=== PATIENT | female | born 1935 | race Caucasian/White ===

== ENCOUNTER 2016-11-20 10:20 | Inpatient (IN) | payer MEDICARE, BC ==
[2016-11-13 11:23] VITALS: BMI 32.1
--- NOTE | 2016-11-19 12:31 | HP ---
DATE OF ADMISSION: 11/20/2016 Merary Walsh is a 81-year-old patient seen with symptomatic left knee osteoarthritis. After having treatment options discussed, patient elected to proceed with left total knee arthroplasty. Consent was obtained. Medical clearance was provided by Dr. Carson Santiago. Past medical history is hypertension, hyperlipidemia, gastroesophageal reflux disease, osteoarthritis. PAST SURGICAL HISTORY: Carpal tunnel release, left elbow surgery. DAILY MEDICATIONS: 1. Antivert. 2. Cozaar. 3. Omeprazole. 4. Zocor. 5. Xyzal. ALLERGIES: None. SOCIAL HISTORY: Patient denies tobacco use. Physical evaluation of the left knee: Range of motion is -4 to 110 degrees. There is tenderness along the medial joint line. Positive medial Agnes's. Crepitus along the medial and patellofemoral compartments with range of motion. Pain with patellofemoral compression. Ligaments are stable. Hip rotation is without pain. Distal neurovascular exam is intact. Radiographs of the left knee reveal severe medial and moderate patellofemoral compartment osteoarthritis. IMPRESSION: Left knee osteoarthritis. PLAN: Left total knee arthroplasty.
[~2016-11-20 10:20] MED LIST: ACETAMINOPHEN TAB 500 MG TAB PO ONE; HYDROmorphone 1 MG/ML 1 ML SYRINGE IVP PRN; LIDOCAINE 1% 20 ML VIAL (10MG/ML) FOR IV START INTRADERMA PRN; MELOXICAM 7.5 MG TAB PO ONE; MIDAZOLAM 2 MG/2 ML VIAL IV PRN; ONDANSETRON 4 MG/2 ML VIAL IVP ONE; TRANEXAMIC ACID 1,000 MG in SODIUM CHLORIDE 0.9% 100 ML IVPB ONE; ceFAZolin 2 GM in SODIUM CHLORIDE 0.9% 100 ML IVPB ONE; fentaNYL (PF) 50 MCG/ML 20 ML VIAL IVP PRN
[2016-11-20] MEDS: LACTATED RINGERS 1,000 ML IV SCH ×2 (11:27→22:00)
[2016-11-20] MEDS ORDERED: MIDAZOLAM 2 MG/2 ML VIAL IVP ONE (11:40)
[2016-11-20] MEDS ORDERED: fentaNYL (PF) 50 MCG/ML 2 ML AMP IV ONE (11:41)
[2016-11-20] MEDS ORDERED: ROPIVACAINE 1,100 MG, SODIUM CHLORIDE 0.9% 330 ML MISCELLANE PRN ×2 (13:16)
[2016-11-20] MEDS ORDERED: SODIUM CHLORIDE 0.9% 100 ML BAG ONE (13:18)
[2016-11-20] MEDS ORDERED: HYDROmorphone (PF) 1 MG/ML ONE (13:18)
[2016-11-20] MEDS ORDERED: TRANEXAMIC ACID 1,000 MG/10 ML VIAL ONE (13:18)
[2016-11-20] MEDS ORDERED: PROPOFOL 10 MG/ML 20 ML VIAL IV ONE (13:18)
[2016-11-20] MEDS ORDERED: ePHEDrine 50 MG/ML 1 ML AMP ONE (13:18)
[2016-11-20] MEDS ORDERED: MIDAZOLAM 2 MG/2 ML VIAL ONE (13:18)
--- NOTE | 2016-11-20 13:24 | P.ONQ ---
Anesthesiology Proc Note - PNB - Peripheral Nerve Block Performed Left Adductor Canal Infusion Time Out Performed: Yes Indication: Acute Post-Operative Pain, Analgesia Specifically requested for management of pain by : Walter Brito Sedation Type: Sedate with meaningful contact maintained Preparation: Sterile Prep Position: Supine Catheter Depth at Skin (cm): 6 Catheter: Indwelling Needle Types: On-Q Needle Size: 100mm (4") Needle Gauge: 20 Technique: Ultrasound Injectate: 0.5% Ropivacaine (see comment for volume) (25 cc) Narrative: After advancing the catheter off the needle, and detaching from the needle nonpulsatile blood appeared in the catheter. The catheter was then withdrawn approximately 3 mm, blood was not able to be aspirated, and the catheter was affixed to the skin and sterilely dressed in this position. If no blood is aspirated in the recovery room we will start a 0.2% ropivacaine infusion at 8 mL per hour. It is anticipated that this should provide good analgesia postoperatively for this patient. Blood Aspirated: Yes Pain Paresthesia on Injection Noted: No Resistance on Injection: Normal Events: Uneventful and Well Tolerated
[2016-11-20] MEDS: ROPIVACAINE 246.25 MG, EPINEPHrine 0.5 MG, KETOROLAC 30 MG, cloNIDine HCL/PF 80 MCG, WA... MISCELLANE ONE ×10 (13:53→14:49)
[2016-11-20] MEDS ORDERED: LACTATED RINGERS 1,000 ML IV ONE ×2 (13:55→14:30)
[2016-11-20] MEDS ORDERED: HYDROcodone/APAP 7.5-325MG 1 EACH TAB PO PRN ×2 (15:16)
[2016-11-20] MEDS ORDERED: HYDROmorphone 1 MG/ML 1 ML SYRINGE IVP PRN ×3 (15:16)
[2016-11-20] MEDS ORDERED: NALOXONE 0.4 MG/ML 1 ML VIAL IV PRN (15:16)
--- NOTE | 2016-11-20 15:16 | P.OP ---
Date of Procedure: 11/20/16 Preoperative Diagnosis: Left knee osteoarthritis Postoperative Diagnosis: Left knee osteoarthritis Procedure(s) Performed: Left total knee arthroplasty Implants: 1. Humberto persona size 6 standard cemented cruciate retaining femoral component 2. Humberto persona size D cemented tibial tray 3. Humberto persona 10 millimeter polyethylene tibial insert 4. Humberto persona 35 mm all polyethylene cemented patella Anesthesia: regional (Adductor canal block), local, spinal Surgeon: Walter Brito Family Engagement Specialist #1: Ja Goncalves Estimated Blood Loss (ml): 200 Pathology: other (Bone) Condition: stable Disposition: PACU Indications for Procedure: 81-year-old patient seen with progressive symptomatic left knee osteoarthritis. After having treatment options discussed, she elected to proceed with left total knee arthroplasty. Operative Findings: See description of procedure Description of Procedure: Patient was taken to the operative suite after having undergone an adductor canal block by department of anesthesia. Patient underwent a spinal anesthetic by the department of anesthesia. Patient was given preoperative IV intake antibiotics and TXA. A well-padded tourniquet was placed about the left lower extremity. The lower extremity was then prepped and draped in the normal sterile orthopedic fashion. A standard anterior incision was made sharply through skin. Dissection was taken down through the subcutaneous soft tissues down to the extensor mechanism. A medial arthrotomy was performed, patella was everted and knee was flexed. There was advanced osteoarthritis noted. A proximal tibial cutting guide was positioned. Proximal tibial cut was made. A distal intramedullary femoral cutting guide was positioned, distal femoral cut made. We placed the appropriate sizing guide and selected the appropriate size. A distal 4-in-1 femoral cutting block was positioned, distal femoral cuts were made. We now placed a trial femoral component into position, along with an appropriate size tibial tray and insert. We now took the knee through range of motion and had full extension good flexion and good overall soft tissue balance noted. The patella was everted and a flush cut made with patellar quad tendon. We templated the patella, appropriate drill holes were made. An appropriate trial patella was positioned, knee was taken through full range of motion with the patella tracking very nicely. The trial patella was removed. Drill holes were made through the femoral component. All trial components were removed after marking off the appropriate rotation of the tibia. Retractors were now positioned along the proximal tibia. An appropriate keel punch was made with the appropriate size tibial guide. At this point appropriate size implants were chosen and opened. The tourniquet was insufflated to 350. The joint was irrigated copiously with pulse lavage mechanical irrigation. The posterior capsule and deep soft tissues were infiltrated with local analgesic. We mixed antibiotic methylmethacrylate. Once the methyl methacrylate was ready, the tibial component was cemented into place removing any excess methylmethacrylate. The femoral component was cemented into place removing the removing any excess methylmethacrylate. We then inserted the appropriate size polyethylene tibial insert. We made sure that it was locked into position. We took the knee into full extension, and then back in a flexion making sure we had removed any excess methylmethacrylate. The patellar component was then cemented down and secured with clamp. Excess methylmethacrylate removed. We kept the knee in full extension, patellar clamp in position until methylmethacrylate had hardened. Once it had hardened the patellar clamp was removed. The knee was taken through full range of motion. The patella tracked nicely. There was good soft tissue balancing. The tourniquet was now released. Additional hemostasis was achieved via electrocautery. A second gram of TXA was given. The wound was irrigated with pulse lavage mechanical irrigation. The extensor mechanism was repaired with Vicryl. We checked the repair with range of motion and it was stable. The subcutaneous soft tissues were repaired with Vicryl in layers. The skin was approximated with pernio/Dermabond. Sterile dressings were applied followed by loose web roll and Binh bandage. The patient was transferred to a bed, and taken to recovery in stable and satisfactory condition. Ja SANTIAGO assisted with the procedure.
[2016-11-20] MEDS ORDERED: SODIUM CHLORIDE 0.9% 1,000 ML IV SCH (15:30)
[2016-11-20] MEDS ORDERED: ROPIVACAINE 5 MG/ML 30 ML VIAL MISCELLANE ONE (15:46)
--- NOTE | 2016-11-20 15:54 | XR ---
Limited left knee HISTORY: Postop alignment 2 views of the left knee No comparisons Patient is status post left knee arthroplasty. Lucency present within the soft tissues. Alignment is anatomic. No evident dislocation. Lucency in the medullary canal of the distal femur thought likely t o be postoperative finding. IMPRESSION: Orthopedic follow-up.
[2016-11-20] MEDS ORDERED: MECLIZINE 25 MG TAB PO PRN (17:44)
[2016-11-20] MEDS: traMADol 50 MG TAB PO SCH ×2 (18:06→21:11)
[2016-11-20] MEDS: ATORVASTATIN 20 MG TAB PO SCH (21:07)
[2016-11-20] MEDS: SENNOSIDES-DOCUSATE SODIUM 1 EACH TAB PO SCH (21:09)
[2016-11-21] MEDS: ceFAZolin 2 GM in SODIUM CHLORIDE 0.9% 100 ML IVPB SCH ×2 (00:24→07:06)
[2016-11-21 07:44] LABS: Basophils % (A) 0 %; CH 31.8; CHCM 34.1; Eosinophils % (A) 0 %; HCT 33.2 % (34.0-46.0); HDW 2.51; HGB 11.1 gm/dL (11.4-16.0); Luc # (Auto) 0.08; Luc % (Auto) 1; Lymphocytes # (A) 1.1 k/uL (1.0-4.8); Lymphocytes % (A) 11 %; MCH 31.2 pg (25.0-35.0); MCHC 33.3 g/dL (31.0-37.0); MCV 93.6 fL (80.0-100.0); Monocytes # (A) 0.7 k/uL (0-1.0); Monocytes % (A) 6 %; Neutrophils # (A) 8.5 k/uL (1.3-7.7); Neutrophils % (A) 82 %; RBC 3.55 m/uL (3.80-5.40); RDW 12.3 % (11.5-15.5); WBC 10.4 k/uL (3.8-10.6); WBC (Perox) 11.31
[2016-11-21] MEDS: ENOXAPARIN 30 MG/0.3 ML SYRINGE SQ SCH ×2 (08:38→20:02)
[2016-11-21] MEDS: traMADol 50 MG TAB PO SCH ×2 (08:38→14:42)
[2016-11-21] MEDS: FAMOTIDINE 20 MG TAB PO SCH (08:38)
[2016-11-21] MEDS: PANTOPRAZOLE 40 MG TABLET PO SCH (08:39)
[2016-11-21] MEDS: CALCIUM CARB-VIT D 500MG-200UN 1 EACH TAB PO SCH (08:39)
[2016-11-21] MEDS: MELOXICAM 7.5 MG TAB PO SCH (08:39)
[2016-11-21] MEDS: CALCIUM CARBONATE 500 MG CHEWABLE PO SCH (08:39)
[2016-11-21] MEDS: MULTIVITAMINS, THERA 1 EACH TAB PO SCH (08:39)
[2016-11-21] MEDS: LACTOBACILLUS ACIDOPH & BULGAR 1 EACH PACKET PO SCH ×2 (08:40→08:46)
[2016-11-21] MEDS: LOSARTAN 50 MG TAB PO SCH (08:40)
[2016-11-21] MEDS: FLUTICASONE 50MCG/SPRAY NASAL 16GM EA NOSTRIL SCH (08:46)
[2016-11-21] MEDS: ONDANSETRON 4 MG/2 ML VIAL IVP PRN (09:47)
--- NOTE | 2016-11-21 10:13 | P.PN ---
Progress Note - Text 0735. Anesthesia POD1. Patient is status post left TKR under spinal anesthesia with a left adductor canal catheter placed for postoperative pain relief. The infusion is 0.2% ropivacaine at 8 mL per hour. Visual analog score is 2, 3 at rest and with ambulation respectively. Catheter site is clean and dry and the dressing is intact.
--- NOTE | 2016-11-21 13:45 | P.CONS ---
History of Present Illness - Reason for Consult Consult date: 11/21/16 Requesting physician: Walter Brito - Chief Complaint Left knee arthroplasty - History of Present Illness This is a pleasant 81-year-old lady patient of Dr. Berkowitz. She has underlying history of hyperlipidemia hypertension GERD was her arthritispostoperative nausea and vomiting admitted to the surgical floor after of knee left knee arthroplasty was performedon 11/20/[address] Brito. Patient denies any chest discomfort shortness of breath or palpitations. She has difficulties mainly with postoperative nausea without any vomiting. Patient denies any history of pancreas problems in the past no dysphasia patient denies any gallbladder pathology prior to admission.is receiving Lovenox for DVT prophylaxis. Expectation for home discharge would be with family memberswith home therapies. Review of Systems Constitutional: Reports as per HPI, Denies anorexia, Denies chills, Denies chronic headaches, Denies chronic pain, Denies daytime sleepiness, Denies fatigue, Denies fever, Denies lethargy, Denies malaise, Denies night sweats, Denies poor appetite, Denies sweats, Denies weakness, Denies weight gain, Denies weight loss Ears, nose, mouth and throat: Reports as per HPI, Denies ant. neck pain, Denies bleeding gums, Denies dental pain, Denies dysphagia, Denies epistaxis, Denies headache, Denies hoarseness, Denies mouth pain, Denies nasal congestion, Denies nasal discharge, Denies neck fullness/pressure, Denies neck lump, Denies nose pain, Denies odynophagia, Denies post-nasal drip, Denies sinus pain, Denies sinus pressure, Denies swelling in mouth, Denies swelling in throat, Denies sore throat, Denies vertigo, Denies voice changes Cardiovascular: Reports as per HPI, Denies chest pain, Denies claudication, Denies decreased exercise tolerance, Denies dyspnea on exertion, Denies edema, Denies high blood pressure, Denies irregular heart beat, Denies leg edema, Denies lightheadedness, Denies orthopnea, Denies palpitations, Denies paroxysmal nocturnal dyspnea, Denies phlebitis, Denies rapid heart beat, Denies shortness of breath, Denies syncope Respiratory: Reports as per HPI, Denies congestion, Denies cough, Denies cough with sputum, Denies dyspnea, Denies excessive sputum, Denies hemoptysis, Denies home oxygen, Denies pain, Denies pain on inspiration, Denies pleurisy, Denies respiratory infections, Denies sleep apnea, Denies snoring, Denies wheezing Gastrointestinal: Reports as per HPI, Reports nausea, Denies abdominal pain, Denies belching, Denies bloating, Denies BRBPR, Denies change in bowel habits, Denies coffee ground emesis, Denies constipation, Denies diarrhea, Denies dyspepsia, Denies early satiety, Denies excessive gas, Denies heartburn, Denies hematemesis, Denies hematochezia, Denies indigestion, Denies jaundice, Denies lactose intolerance, Denies loss of appetite, Denies melena, Denies vomiting Genitourinary: Reports as per HPI, Denies abnormal vaginal bleeding, Denies decreased libido, Denies difficulty conceiving, Denies difficulty voiding, Denies dysmenorrhea, Denies dyspareunia, Denies dysuria, Denies flank pain, Denies genital sores, Denies hematuria, Denies hot flashes, Denies incomplete emptying, Denies kidney stones, Denies menorrhagia, Denies mixed incontinence, Denies nocturia, Denies pelvic pain, Denies post void dribbling, Denies , Denies prolapse symptoms, Denies stress incontinence, Denies urge incontinence , Denies urgency, Denies urinary frequency, Denies vaginal discharge, Denies vaginal dryness, Denies vaginal itching, Denies vaginal odor Menstruation: Reports as per HPI, Reports postmenopausal Musculoskeletal: Reports as per HPI, Denies arm numbness/tingling, Denies atrophy, Denies fractures, Denies frequent falls, Denies gait dysfunction, Denies hot joints, Denies leg numbness/tingling, Denies limitation of motion, Denies loss of height, Denies low back pain, Denies morning stiffness, Denies muscle cramps, Denies muscle weakness, Denies myalgias, Denies neck pain, Denies neck stiffness, Denies prior amputations, Denies redness of joints, Denies shooting arm pain, Denies shooting leg pain Integumentary: Reports as per HPI Neurological: Reports as per HPI, Reports gait dysfunction, Denies aphasia, Denies ataxia, Denies balance difficulties, Denies burning pain, Denies change in mentation, Denies change in smell/taste, Denies change in speech, Denies confusion, Denies convulsions, Denies double vision, Denies head injury, Denies headaches, Denies hearing difficulties, Denies lack of coordination, Denies loss of vision, Denies memory loss, Denies migraines, Denies motor disturbance, Denies numbness, Denies paralysis, Denies paresthesias, Denies seizures, Denies sensory deficit, Denies spasticity, Denies syncope, Denies tic, Denies tingling , Denies transient paralysis, Denies tremors, Denies vertigo, Denies weakness, Denies visual changes Psychiatric: Reports as per HPI, Denies anhedonia, Denies anxiety, Denies anxiety attacks, Denies change in appetite, Denies change in libido, Denies change in sleep habits, Denies confusion, Denies depression, Denies difficulty concentrating, Denies disorientation, Denies hallucinations, Denies hopelessness , Denies hypersomnia, Denies insomnia, Denies irritability, Denies memory loss, Denies mood swings, Denies paranoia, Denies sadness/tearfulness, Denies sleep disturbances, Denies suicidal ideation Endocrine: Reports as per HPI, Denies cold intolerance, Denies deepening of the voice, Denies excessive sweating, Denies excessive thirst, Denies fatigue, Denies flushing, Denies heat intolerance, Denies high blood sugars, Denies increase in ring/shoe/hat size, Denies low blood sugars, Denies nocturia, Denies palpitations, Denies polydipsia, Denies polyphagia, Denies polyuria, Denies proptosis, Denies recent glucocorticoid use, Denies thyroid mass, Denies weight change Past Medical History Past Medical History: No Reported History, GERD/Reflux, Hyperlipidemia, Hypertension, Osteoarthritis (OA) History of Any Multi-Drug Resistant Organisms: None Reported Past Surgical History: Heart Catheterization Additional Past Surgical History / Comment(s): HEMORRHOIDECTOMY, LEFT AND RIGHT GREAT TOE- INGROWN TOENAIL. LEFT ELBOW, CARPAL TUNNEL RELEASE-BILATERAL, COLONOSCOPY Past Anesthesia/Blood Transfusion Reactions: Postoperative Nausea & Vomiting ( PONV) Past Psychological History: No Psychological Hx Reported Smoking Status: Never smoker Past Alcohol Use History: Rare Past Drug Use History: None Reported - Past Family History Mother Family Medical History: No Reported History, Coronary Artery Disease (CAD) Father Family Medical History: Coronary Artery Disease (CAD) Brother(s) Family Medical History: Coronary Artery Disease (CAD) Sister(s) Family Medical History: No Reported History Son(s) Family Medical History: Hypertension Medications and Allergies Home Medications Medication Instructions Recorded Confirmed Type Acetaminophen [Tylenol Arthritis] 650 mg PO Q6H PRN 11/13/16 11/20/16 History Aspirin [Adult Low Dose Aspirin EC] 81 mg PO DAILY 11/13/16 11/20/16 History Ca Carbonate/Vitamin D3/Vit K 1 tab PO DAILY 11/13/16 11/20/16 History [Citracal Soft Chew] Calcium Carbonate/Vitamin D3 1 tab PO DAILY 11/13/16 11/20/16 History [Calcium 600-Vit D3 200 Tablet] Fluticasone Nasal [place] [Flonase 2 spr EA NOSTRIL DAILY 11/13/16 11/20/16 History Nasal [place]] Glucosamine HCl/Chondr Rich A Na 1 tab PO DAILY 11/13/16 11/20/16 History [Osteo Bi-Flex Caplet] Ibuprofen [Advil] 200 - 400 mg PO Q4H PRN 11/13/16 11/20/16 History L.acidoph,Paracasei, B.lactis 1 cap PO DAILY 11/13/16 11/20/16 History [Probiotic] Levocetirizine Dihydrochloride 5 mg PO AC-SUPPER 11/13/16 11/20/16 History [Xyzal] Losartan [Cozaar] 50 mg PO DAILY 11/13/16 11/20/16 History Meclizine [Antivert] 25 mg PO BID PRN 11/13/16 11/20/16 History Multivitamins, Thera [Multivitamin] 1 tab PO DAILY 11/13/16 11/20/16 History Omeprazole 20 mg PO DAILY 11/13/16 11/20/16 History Simvastatin [Zocor] 40 mg PO DAILY@1800 11/13/16 11/20/16 History traMADol HCL [Ultram] 50 mg PO Q6HR PRN 11/13/16 11/20/16 History Allergies Allergy/AdvReac Type Severity Reaction Status Date / Time adhesive tape Allergy Rash/Hives Verified 11/20/16 12:23 Sulfa (Sulfonamide Allergy Rash/Hives Verified 11/20/16 12:23 Antibiotics) Physical Exam Vitals: Vital Signs Temp Pulse Resp BP BP Pulse Ox 11/21/16 07:00 98.3 F 80 16 104/55 91 L 11/21/16 01:10 97.9 F 70 16 116/56 93 L 11/20/16 19:45 18 11/20/16 19:41 96.7 F L 63 18 138/66 98 11/20/16 18:00 67 127/67 11/20/16 17:45 68 122/67 11/20/16 17:30 59 L 120/61 11/20/16 17:15 62 118/60 11/20/16 17:00 64 124/64 11/20/16 16:45 61 127/74 11/20/16 16:00 69 18 122/58 95 11/20/16 15:47 69 18 110/54 95 11/20/16 15:29 96.3 F L 72 18 120/87 92 L 11/20/16 11:05 96.9 F L 78 18 166/72 97 Intake and Output 11/20/16 11/21/16 11/21/16 22:59 06:59 14:59 Intake Total 400 400 Output Total 300 400 150 Balance 100 0 -150 Intake: IV 200 400 Sodium Chloride 0.9% 1, 200 400 000 ml @ 50 mls/hr IV . Q20H COUNTS INCLUDE 234 BEDS AT THE [facility] Rx#:[id number] Oral 200 Output: Urine 100 400 150 Uretheral ([place]) 400 100 Estimated Blood Loss 200 Other: Voiding Method Indwelling Catheter Weight 77.111 kg - Constitutional General appearance: cooperative, no acute distress - EENT Eyes: anicteric sclerae, PERRLA, normal appearance ENT: hearing grossly normal, NA/AT, normal oropharynx - Neck Neck: no lymphadenopathy, normal ROM, no other, no rigidity, no stridor, no thyromegaly - Respiratory Respiratory: bilateral: CTA, negative: diminished, dullness, rales, rhonchi, wheezing - Cardiovascular Rhythm: regular Heart sounds: normal: S1, S2 Abnormal Heart Sounds: no systolic murmur, no diastolic murmur, no rub, no S3 Gallop, no S4 Gallop, no click, no other - Gastrointestinal General gastrointestinal: normal bowel sounds, soft - Integumentary Integumentary: normal, normal turgor - Neurologic Neurologic: CNII-XII intact - Musculoskeletal Musculoskeletal: strength equal bilaterally - Psychiatric Psychiatric: A&O x's 3, appropriate affect, intact judgment & insight Results CBC & Chem 7: 11/21/16 07:15 Labs: Abnormal Lab Results - Last 24 Hours (Table) 11/21/16 Range/Units 07:15 RBC 3.55 L (3.80-5.40) m/uL Hgb 11.1 L (11.4-16.0) gm/dL Hct 33.2 L (34.0-46.0) % Neutrophils # 8.5 H (1.3-7.7) k/uL Laboratory Results WBC 10.4 k/uL (3.8-10.6) 11/21/16 07:15 RBC 3.55 m/uL (3.80-5.40) L 11/21/16 07:15 Hgb 11.1 gm/dL (11.4-16.0) L 11/21/16 07:15 Hct 33.2 % (34.0-46.0) L 11/21/16 07:15 MCV 93.6 fL (80.0-100.0) 11/21/16 07:15 MCH 31.2 pg (25.0-35.0) 11/21/16 07:15 MCHC 33.3 g/dL (31.0-37.0) 11/21/16 07:15 RDW 12.3 % (11.5-15.5) 11/21/16 07:15 Plt Count 200 k/uL (150-450) 11/21/16 07:15 Neutrophils % 82 % 11/21/16 07:15 Lymphocytes % 11 % 11/21/16 07:15 Monocytes % 6 % 11/21/16 07:15 Eosinophils % 0 % 11/21/16 07:15 Basophils % 0 % 11/21/16 07:15 Neutrophils # 8.5 k/uL (1.3-7.7) H 11/21/16 07:15 Lymphocytes # 1.1 k/uL (1.0-4.8) 11/21/16 07:15 Monocytes # 0.7 k/uL (0-1.0) 11/21/16 07:15 Eosinophils # 0.0 k/uL (0-0.7) 11/21/16 07:15 Basophils # 0.0 k/uL (0-0.2) 11/21/16 07:15 Assessment and Plan Plan: 1. 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 Plan for home discharge with therapies with family members 2. Postoperative nausea and vomiting, we'll minimize symptoms with Zofran expect resolution in the next one day or so. 3. Hypertension stable on losartan 50 mg daily, resumed with parameters 4. GERD on maintenance PPI at home 5. Hyperlipidemia on Lipitor 20 no changes were made 6. BMI 32 SL changes again were recommended to diminish calories and improve physical activity 7.Postmenopausal disorder bone and density, patient calcium with vitamin D 8. Mild blood loss anemia, DVT prophylaxis using Lovenox GI prophylaxis using maintenance PPIs, bowel softener program Discharge planning home with therapies and family members Thank you Dr. Brito in allowing us to participate for the care of your patient. We'll going to follow her with you during this current hospital stay. Please do not hesitate to call for any concerns or have of her care Time with Patient: Greater than 30
[2016-11-21] MEDS: ACETAMINOPHEN TAB 325 MG TAB PO PRN (16:57)
[2016-11-21] MEDS: ATORVASTATIN 20 MG TAB PO SCH (16:58)
[2016-11-21] MEDS ORDERED: LORATADINE 10 MG TAB PO SCH (17:30)
--- NOTE | 2016-11-21 17:40 | P.PN ---
Subjective Principal diagnosis: Status post left total knee arthroplasty Patient is seen today resting in her hospital bed, she has family present at bedside. Patient has had some nausea today. She is ambulating minimally at this time. Urinary cath was discontinued. Patient denies any chest pain, shortness of breath, lightheadedness, fever chills. Objective - Vital Signs Vital signs: Vital Signs Temp 97.5 F L 11/21/16 14:11 Pulse 75 11/21/16 14:11 Resp 17 11/21/16 14:11 BP 133/69 11/21/16 14:11 Pulse Ox 95 11/21/16 14:11 Intake & Output 11/20/16 11/21/16 11/21/16 18:59 06:59 18:59 Intake Total 2600 600 Output Total 300 400 450 Balance 2300 200 -450 Weight 77.111 kg Intake: IV 2400 600 Sodium Chloride 0.9% 1, 600 000 ml @ 50 mls/hr IV . Q20H [facility] Rx#:[id number] Oral 200 Output: Urine 100 400 450 Uretheral ([place]) 400 100 Estimated Blood Loss 200 Other: Voiding Method Indwelling Catheter Indwelling Catheter - Exam Left lower extremity: Incision is clean, dry and intact. Calf soft, no tenderness with palpation. Sensory exam light touch throughout the extremity is intact. Cap refills less than 3 seconds. Plantar flexion, dorsiflexion, EHL, FHL are intact - Labs CBC & Chem 7: 11/21/16 07:15 Labs: Abnormal Lab Results - Last 24 Hours (Table) 11/21/16 Range/Units 07:15 RBC 3.55 L (3.80-5.40) m/uL Hgb 11.1 L (11.4-16.0) gm/dL Hct 33.2 L (34.0-46.0) % Neutrophils # 8.5 H (1.3-7.7) k/uL Assessment and Plan Plan: Assessment: 1. Postop day #1 status post left total knee arthroplasty Plan: 1. Pain control, hold off on narcotic medication at this time, utilize Tylenol 2. Continue weightbearing with therapy and use of CPM 3. Daily dressing changes/ice and elevate 4. Encourage incentive spirometer 5. GI and DVT prophylaxis, continue use of Lovenox 6. Medical recommendations 7. Discharge planning: Patient will likely be discharged home tomorrow Time with Patient: Less than 30
--- NOTE | 2016-11-21 17:42 | P.DS ---
Providers Date of admission: 11/20/16 10:45 Expected date of discharge: 11/22/16 Attending physician: Walter Brito Consults: 11/20/16 15:16 Consult Physician Routine Consulting Provider: David Berkowitz Consult Reason/Comments: Medical management Do you want consulting provider notified?: Yes Primary care physician: [facility] Course: Date of admission: 11/20/2016 Date of discharge: 11/21/2016 Admission diagnosis: Status post left total knee arthroplasty Discharge diagnosis: Same Attending physician: Dr. Brito Surgical procedures: Left total knee arthroplasty Brief history: Patient is a 81-year-old female with a history of progressive primary left knee osteoarthritis. At this point patient has failed conservative treatment measures and has opted to proceed with a elective left total knee arthroplasty. Hospital course: Details of patient's surgery can be found in operative report. Patient tolerated the procedure well and was subsequently transported to orthopedic floor. Patient's orthopeidc and medical care was provided daily. Patient had daily laboratory tests performed for evaluation of overall blood counts. Patient had daily physical therapy to include strengthening range of motion as well as education with walker ambulation. Patient had daily CPM usage as part of their physical therapy program. Patient was treated with Lovenox for their postoperative DVT prophylaxis during their inpatient stay. Patient was noted to have a relatively uneventful postoperative course. Patient reported satisfactory pain control with oral pain medications by postoperative day 0. Patient showed satisfactory progress with physical therapy. Patient moved steadily through the program and had no difficulty meeting the goals by postoperative day 2. Given patient's otherwise satisfactory course and having met physical therapy goals, plan is to discharge patient home on postoperative day 2. Discharge condition/disposition: Patient will be discharged home in stable condition. Discharge medications: Instructions are given on resumption of patient's normal daily medications per primary care recommendation, in addition patient will be prescribed aspirin 325 mg, Colace 100 mg. Discharge instructions: 1. Wound care and infection precautions, keep incision dry and covered while showering, no lotions, creams, moisturizers. No soaking, tubs, pools, hottubs. Do not scrub over the incision. 2. Weight-bear as tolerated with walker / cane until follow-up. 3. Ice and elevate when necessary. Do not exceed 20 minutes per hour with ice pack. 4. Utilize compression sleeve until seen at first follow up appointment. 5. Visiting nursing care. 6. Home physical therapy including home CPM. 7. Pain meds and anticoagulants per prescription. 8. Pain medication has potential to cause constipation. Increase oral fluid and fiber intake. Contact primary care provider if you have not had a bowel movement within 48 hours after discharge 9. No anti-inflammatory medication until discussed at first post operative visit, this including Motrin, Aleve, Mobic, Diclofenac. 10. Follow up in office at 2 weeks postop with Phil Goncalves PA-C 11. Follow up with your primary care doctor 7-10 days after discharge. 12. Contact [facility] with any questions, . Procedures: Left total knee arthroplasty Patient Condition at Discharge: Good Plan - Discharge Summary New Discharge Prescriptions: Aspirin 325 mg PO BID #60 tab Docusate [Colace] 100 mg PO DAILY #20 capsule Discharge Medication List Acetaminophen [Tylenol Arthritis] 650 mg PO Q6H PRN 11/13/16 [History] Ca Carbonate/Vitamin D3/Vit K [Citracal Soft Chew] 1 tab PO DAILY 11/13/16 [ History] Calcium Carbonate/Vitamin D3 [Calcium 600-Vit D3 200 Tablet] 1 tab PO DAILY 07/22 [History] Fluticasone Nasal Christopher [Flonase Nasal Christopher] 2 spr EA NOSTRIL DAILY 11/13/16 [ History] Glucosamine HCl/Chondr Rich A Na [Osteo Bi-Flex Caplet] 1 tab PO DAILY 11/13/16 [ History] L.acidoph,Paracasei, B.lactis [Probiotic] 1 cap PO DAILY 11/13/16 [History] Levocetirizine Dihydrochloride [Xyzal] 5 mg PO AC-SUPPER 11/13/16 [History] Losartan [Cozaar] 50 mg PO DAILY 11/13/16 [History] Meclizine [Antivert] 25 mg PO BID PRN 11/13/16 [History] Multivitamins, Thera [Multivitamin] 1 tab PO DAILY 11/13/16 [History] Omeprazole 20 mg PO DAILY 11/13/16 [History] Simvastatin [Zocor] 40 mg PO DAILY@1800 11/13/16 [History] traMADol HCL [Ultram] 50 mg PO Q6HR PRN 11/13/16 [History] Aspirin 325 mg PO BID #60 tab 11/22/16 [Rx] Docusate [Colace] 100 mg PO DAILY #20 capsule 11/22/16 [Rx] Follow up Appointment(s)/Referral(s): Marcelo [facility], [NON-STAFF] - Ja Goncalves, ZAINAB [PHYSICIAN POLITICAL CONSULTANT] - 2 Weeks Activity/Diet/Wound Care/Special Instructions: Walker - has at home CPM - has at home Orthopedic Discharge Instructions: 1. Wound care and infection precautions, keep incision dry and covered while showering, no lotions, creams, moisturizers. No soaking, pools, hot tubs. Do not scrub over incision. 2. Weight-bear as tolerated with walker / cane until follow-up. 3. Ice and elevate when necessary. Do not exceed 20 minutes per hour with ice pack. 4. Utilize compression sleeve until seen at first follow up appointment. 5. Visiting nursing care. 6. Home physical therapy including home CPM. 7. Pain meds and anticoagulants per prescription. 8. Pain medication has potential to cause constipation. Increase oral fluid and fiber intake. Contact primary care provider if you have not had a bowel movement within 48 hours after discharge. 9. No anti-inflammatory medication until discussed at first post operative visit, this including Motrin, Aleve, Mobic, Diclofenac. 10. Follow up in office at 2 weeks postop with Phil Goncalves PA-C 11. Follow up with your primary care doctor 7-10 days after discharge. 12. Contact [facility] with any questions, . Discharge Disposition: HOME WITH HOME HEALTH SERVICES
[2016-11-21 20:02] VITALS: RESP 16
[2016-11-21] MEDS: SENNOSIDES-DOCUSATE SODIUM 1 EACH TAB PO SCH (20:02)
[2016-11-22] MEDS: ACETAMINOPHEN TAB 325 MG TAB PO PRN ×3 (00:07→09:54)
[2016-11-22] MEDS: hydrOXYzine PAMOATE 25 MG CAP PO PRN ×3 (00:08→09:56)
[2016-11-22] MEDS: ONDANSETRON 4 MG/2 ML VIAL IVP PRN (01:23)
[2016-11-22 07:20] VITALS: BP 159/89; PULSE 75; TEMP 97.9
[2016-11-22 07:33] LABS: Basophils # (A) 0.2 k/uL (0-0.2); Basophils % (A) 2 %; CH 31.9; CHCM 34.9; Eosinophils % (A) 0 %; HCT 30.6 % (34.0-46.0); HDW 2.53; HGB 10.5 gm/dL (11.4-16.0); Luc # (Auto) 0.04; Luc % (Auto) 1; Lymphocytes # (A) 0.8 k/uL (1.0-4.8); Lymphocytes % (A) 10 %; MCH 31.5 pg (25.0-35.0); MCHC 34.4 g/dL (31.0-37.0); MCV 91.7 fL (80.0-100.0); Mean Platelet Volume 7.9; Monocytes # (A) 0.7 k/uL (0-1.0); Monocytes % (A) 8 %; Neutrophils # (A) 6.4 k/uL (1.3-7.7); Neutrophils % (A) 79 %; RBC 3.34 m/uL (3.80-5.40); RDW 12.3 % (11.5-15.5); WBC 8.2 k/uL (3.8-10.6); WBC (Perox) 8.51
[2016-11-22 07:54] LABS: Anion Gap 7 mmol/L; Blood Urea Nitrogen 17 mg/dL (7-17); Calcium 8.6 mg/dL (8.4-10.2); Carbon Dioxide 26 mmol/L (22-30); Chloride 100 mmol/L (98-107); Glucose 115 mg/dL (74-99); Non-African American GFR(MDRD) >60 (>60 ml/min/1.73 sqM); Potassium 4.5 mmol/L (3.5-5.1); Sodium 133 mmol/L (137-145)
[2016-11-22] MEDS: PANTOPRAZOLE 40 MG TABLET PO SCH (08:43)
[2016-11-22] MEDS: ENOXAPARIN 30 MG/0.3 ML SYRINGE SQ SCH (08:43)
[2016-11-22] MEDS: MELOXICAM 7.5 MG TAB PO SCH (08:43)
[2016-11-22] MEDS: LOSARTAN 50 MG TAB PO SCH (08:44)
[2016-11-22] MEDS: FAMOTIDINE 20 MG TAB PO SCH (08:44)
[2016-11-22] MEDS: CALCIUM CARB-VIT D 500MG-200UN 1 EACH TAB PO SCH (08:44)
[2016-11-22] MEDS: LACTOBACILLUS ACIDOPH & BULGAR 1 EACH PACKET PO SCH (08:44)
[2016-11-22] MEDS: FLUTICASONE 50MCG/SPRAY NASAL 16GM EA NOSTRIL SCH ×2 (08:44→08:46)
--- NOTE | 2016-11-22 10:54 | P.PN ---
Subjective Principal diagnosis: Status post left total knee arthroplasty Patient is seen today resting in her hospital bed, she has family present at bedside. Patient's nausea is improved significantly. Patient denies any chest pain, shortness of breath, lightheadedness, fever chills. Objective - Vital Signs Vital signs: Vital Signs Temp 97.9 F 11/22/16 07:19 Pulse 75 11/22/16 07:19 Resp 16 11/22/16 07:19 BP 159/89 11/22/16 07:19 Pulse Ox 95 11/22/16 07:19 Intake & Output 11/21/16 11/22/16 11/22/16 18:59 06:59 18:59 Intake Total 360 480 Output Total 450 200 Balance -90 -200 480 Intake: Oral 360 480 Output: Urine 450 200 Uretheral ([place]) 100 Other: Voiding Method Toilet # Voids 1 - Exam Left lower extremity: Incision is clean, dry and intact. Calf soft, no tenderness with palpation. Sensory exam light touch throughout the extremity is intact. Cap refills less than 3 seconds. Plantar flexion, dorsiflexion, EHL, FHL are intact - Labs CBC & Chem 7: 11/22/16 06:57 11/22/16 06:57 Labs: Abnormal Lab Results - Last 24 Hours (Table) 11/22/16 11/22/16 Range/Units 06:57 06:57 RBC 3.34 L (3.80-5.40) m/uL Hgb 10.5 L (11.4-16.0) gm/dL Hct 30.6 L (34.0-46.0) % Lymphocytes # 0.8 L (1.0-4.8) k/uL Sodium 133 L (137-145) mmol/L Glucose 115 H (74-99) mg/dL Assessment and Plan Plan: Assessment: 1. Postop day #2 status post left total knee arthroplasty Plan: 1. Pain control, we'll discharge home on Tylenol, she has tramadol at home if need be 2. Continue weightbearing with therapy and use of CPM 3. Daily dressing changes/ice and elevate 4. Encourage incentive spirometer 5. GI and DVT prophylaxis, will be discharged home on aspirin 325 mg twice a day 6. Medical recommendations 7. Discharge planning: Patient will be discharged home today Time with Patient: Less than 30
[2016-11-22] MEDS: MULTIVITAMINS, THERA 1 EACH TAB PO SCH (13:51)
[2016-11-22] MEDS: CALCIUM CARBONATE 500 MG CHEWABLE PO SCH (13:51)
--- NOTE | 2016-11-22 14:42 | P.PN ---
Subjective This is a pleasant 81-year-old lady patient of Dr. Berkowitz. She has underlying history of hyperlipidemia hypertension GERD was her arthritispostoperative nausea and vomiting admitted to the surgical floor after of knee left knee arthroplasty was performedon 11/20/[address] Brito. Patient denies any chest discomfort shortness of breath or palpitations. She has difficulties mainly with postoperative nausea without any vomiting. Patient denies any history of pancreas problems in the past no dysphasia patient denies any gallbladder pathology prior to admission.is receiving Lovenox for DVT prophylaxis. Expectation for home discharge would be with family members with home therapies. 11/22: Objective - Vital Signs Vital signs: Vital Signs Temp 97.9 F 11/22/16 07:19 Pulse 75 11/22/16 07:19 Resp 16 11/22/16 07:19 BP 159/89 11/22/16 07:19 Pulse Ox 95 11/22/16 07:19 Intake & Output 11/21/16 11/22/16 11/22/16 18:59 06:59 18:59 Intake Total 360 480 Output Total 450 200 Balance -90 -200 480 Intake: Oral 360 480 Output: Urine 450 200 Uretheral ([place]) 100 Other: Voiding Method Toilet # Voids 1 - Exam General appearance: cooperative, no acute distress - EENT Eyes: anicteric sclerae, PERRLA, normal appearance ENT: hearing grossly normal, NA/AT, normal oropharynx - Neck Neck: no lymphadenopathy, normal ROM, no other, no rigidity, no stridor, no thyromegaly - Respiratory Respiratory: bilateral: CTA, negative: diminished, dullness, rales, rhonchi, wheezing - Cardiovascular Rhythm: regular Heart sounds: normal: S1, S2 Abnormal Heart Sounds: no systolic murmur, no diastolic murmur, no rub, no S3 Gallop, no S4 Gallop, no click, no other - Gastrointestinal General gastrointestinal: normal bowel sounds, soft - Integumentary Integumentary: normal, normal turgor - Neurologic Neurologic: CNII-XII intact - Musculoskeletal Musculoskeletal: strength equal bilaterally - Psychiatric Psychiatric: A&O x's 3, appropriate affect, intact judgment & insight - Labs CBC & Chem 7: 11/22/16 06:57 11/22/16 06:57 Labs: Abnormal Lab Results - Last 24 Hours (Table) 11/22/16 11/22/16 Range/Units 06:57 06:57 RBC 3.34 L (3.80-5.40) m/uL Hgb 10.5 L (11.4-16.0) gm/dL Hct 30.6 L (34.0-46.0) % Lymphocytes # 0.8 L (1.0-4.8) k/uL Sodium 133 L (137-145) mmol/L Glucose 115 H (74-99) mg/dL Assessment and Plan Plan: 1. 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 Plan for home discharge with therapies with family members 2. Postoperative nausea and vomiting, we'll minimize symptoms with Zofran expect resolution in the next one day or so. 3. Hypertension stable on losartan 50 mg daily, resumed with parameters 4. GERD on maintenance PPI at home 5. Hyperlipidemia on Lipitor 20 no changes were made 6. BMI 32 SL changes again were recommended to diminish calories and improve physical activity 7.Postmenopausal disorder bone and density, patient calcium with vitamin D 8. Mild blood loss anemia, DVT prophylaxis using Lovenox GI prophylaxis using maintenance PPIs, bowel softener program Discharge planning home with therapies and family members Impression and plan of care have been directed as dictated by the signing physician. Augustina Fountain nurse practitioner acting as scribe for signing physician. Cc: Dr. Waldo Santiago Time with Patient: Greater than 30
== END 2016-11-22 13:32 | disposition home health service (06) | DRG 470 ==
LOC: 2ORMAIN 10:45 → 3SUR 15:37
PROVIDERS: ADMIT Orthopaedic Surgery; ATTEND Orthopaedic Surgery
PROC: 0SRD0J9 Replacement of Left Knee Joint with Synthetic Substitute, Cemented, Open Approach (ICD-10-PCS; principal; 2016-11-20 13:05)
DX: M17.12 Unilateral primary osteoarthritis, left knee (principal); I10 Essential (primary) hypertension; E78.5 Hyperlipidemia, unspecified; K21.9 Gastro-esophageal reflux disease without esophagitis; Z79.899 Other long term (current) drug therapy; Z79.82 Long term (current) use of aspirin; Z82.49 Family history of ischemic heart disease and other diseases of the circulatory system
CPT/HCPCS: 80048; 85025; 88300

== ENCOUNTER → 2017-11-15 | Outpatient (CLI) | payer MEDICARE, BC ==
--- NOTE | 2017-11-16 11:18 | MM ---
Reason for exam: screening (asymptomatic). Last mammogram was performed 1 year ago. History: Patient is postmenopausal and history of other cancer. Family history of breast cancer in sister. Excisional biopsy of the right breast, 1979. Benign excisional biopsy of the right breast, 1969. Physical Findings: A clinical breast exam by your physician is recommended on an annual basis and results should be correlated with mammographic findings. MG 3D Screening Mammo W/Cad Bilateral CC and MLO view(s) were taken. Prior study comparison: October 31, 2016, bilateral MG 3d screening mammo w/cad. October 27, 2015, bilateral MG 3d screening mammo w/cad. There are scattered fibroglandular densities. No significant changes when compared with prior studies. ASSESSMENT: Benign, BI-RAD 2 RECOMMENDATION: Routine screening mammogram of both breasts in 1 year.
== END | disposition home or self-care (01) ==
LOC: RADMAMWWP 09:03
PROVIDERS: ATTEND Obstetrics & Gynecology
DX: Z12.31 Encounter for screening mammogram for malignant neoplasm of breast (principal)
CPT/HCPCS: 77063; 77067

== ENCOUNTER → 2018-12-12 | Outpatient (CLI) | payer MEDICARE, BC ==
--- NOTE | 2018-12-16 08:36 | MM ---
Reason for exam: screening (asymptomatic). Last mammogram was performed 1 year and 1 month ago. History: Patient is postmenopausal and history of other cancer. Family history of breast cancer in sister. Excisional biopsy of the right breast, 1979. Benign excisional biopsy of the right breast, 1969. Physical Findings: A clinical breast exam by your physician is recommended on an annual basis and results should be correlated with mammographic findings. MG 3D Screening Mammo W/Cad Bilateral CC and MLO view(s) were taken. Prior study comparison: November 15, 2017, bilateral MG 3d screening mammo w/cad. October 31, 2016, bilateral MG 3d screening mammo w/cad. The breast tissue is heterogeneously dense. This may lower the sensitivity of mammography. Finding: There are typically benign vascular, round, linear calcifications. There is no discrete abnormality. ASSESSMENT: Benign, BI-RAD 2 RECOMMENDATION: Routine screening mammogram of both breasts in 1 year.
== END | disposition home or self-care (01) ==
LOC: RADMAMWWP 09:19
PROVIDERS: ATTEND Obstetrics & Gynecology
DX: Z12.31 Encounter for screening mammogram for malignant neoplasm of breast (principal)
CPT/HCPCS: 77063; 77067

== ENCOUNTER → 2020-01-08 | Outpatient (CLI) | payer MEDICARE, BC ==
--- NOTE | 2020-01-08 13:43 | MM ---
Reason for exam: screening (asymptomatic). Last mammogram was performed 1 year and 1 month ago. History: Patient is postmenopausal and history of other cancer. Family history of breast cancer in sister. Excisional biopsy of the right breast, 1979. Benign excisional biopsy of the right breast, 1969. Physical Findings: A clinical breast exam by your physician is recommended on an annual basis and results should be correlated with mammographic findings. MG 3D Screening Mammo W/Cad Bilateral CC and MLO view(s) were taken. Prior study comparison: December 12, 2018, bilateral MG 3d screening mammo w/cad. November 15, 2017, bilateral MG 3d screening mammo w/cad. There are scattered fibroglandular densities. There is a stable 2-3mm left lower inner quadrant mass 4cm from nipple. Benign appearing bilateral calcifications. No suspicious abnormality. No significant changes when compared with prior studies. ASSESSMENT: Benign, BI-RAD 2 RECOMMENDATION: Routine screening mammogram of both breasts in 1 year.
== END | disposition home or self-care (01) ==
LOC: RADMAMWWP 09:15
PROVIDERS: ATTEND Obstetrics & Gynecology
DX: Z12.31 Encounter for screening mammogram for malignant neoplasm of breast (principal); Z80.3 Family history of malignant neoplasm of breast
CPT/HCPCS: 77063; 77067

== ENCOUNTER → 2021-02-22 | Outpatient (CLI) | payer MEDICARE, BC ==
--- NOTE | 2021-02-23 09:57 | MM ---
Reason for exam: screening (asymptomatic). Last mammogram was performed 1 year and 1 month ago. History: Patient is postmenopausal and history of other cancer. Family history of breast cancer in sister. Excisional biopsy of the right breast, 1979. Benign excisional biopsy of the right breast, 1969. Physical Findings: A clinical breast exam by your physician is recommended on an annual basis and results should be correlated with mammographic findings. MG 3D Screening Mammo W/Cad Bilateral CC and MLO view(s) were taken. Prior study comparison: January 08, 2020, bilateral MG 3d screening mammo w/cad. December 12, 2018, bilateral MG 3d screening mammo w/cad. There are scattered fibroglandular densities. There are benign appearing round vascular calcifications bilaterally. There is chronic nodularity in the left breast. There is no discrete abnormality. ASSESSMENT: Benign, BI-RAD 2 RECOMMENDATION: Routine screening mammogram of both breasts in 1 year.
== END | disposition home or self-care (01) ==
LOC: RADMAMWWP 08:19
PROVIDERS: ATTEND Obstetrics & Gynecology
DX: Z12.31 Encounter for screening mammogram for malignant neoplasm of breast (principal)
CPT/HCPCS: 77063; 77067

== ENCOUNTER → 2022-03-09 | Outpatient (CLI) | payer MEDICARE, BC ==
--- NOTE | 2022-03-10 13:53 | MM ---
Reason for exam: screening (asymptomatic). Last mammogram was performed 1 year ago. History: Patient is postmenopausal and history of other cancer. Family history of breast cancer in sister at age 50. Excisional biopsy of the right breast, 1979. Benign excisional biopsy of the right breast, 1969. Physical Findings: A clinical breast exam by your physician is recommended on an annual basis and results should be correlated with mammographic findings. MG 3D Screening Mammo W/Cad Bilateral CC and MLO view(s) were taken. Prior study comparison: February 22, 2021, bilateral MG 3d screening mammo w/cad. January 08, 2020, bilateral MG 3d screening mammo w/cad. There are scattered fibroglandular densities. Stable benign calcifications. There is no discrete abnormality. No significant changes when compared with prior studies. ASSESSMENT: Benign, BI-RAD 2 RECOMMENDATION: Routine screening mammogram of both breasts in 1 year.
== END | disposition home or self-care (01) ==
LOC: RADMAMWWP 08:17
PROVIDERS: ATTEND Obstetrics & Gynecology
DX: Z12.31 Encounter for screening mammogram for malignant neoplasm of breast (principal); Z78.0 Asymptomatic menopausal state; Z80.3 Family history of malignant neoplasm of breast
CPT/HCPCS: 77063; 77067

== ENCOUNTER → 2023-03-22 | Outpatient (CLI) | payer MEDICARE, BC ==
--- NOTE | 2023-03-23 18:18 | MM ---
Reason for Exam: Screening (asymptomatic). Last screening mammogram was performed 12 month(s) ago. Patient History: Menarche at age 16. First Full-Term at age 25. Postmenopausal. 1979, Excisional Biopsy on the Right side. 1969, Benign Excisional Biopsy on the right side. Sister had breast cancer, age 50. Risk Values: Liset 5 year model risk: 3.3%. NCI Lifetime model risk: 3.3%. Prior Study Comparison: 01/08/2020 Bilateral Screening Mammogram, [facility]. 02/22/2021 Bilateral Screening Mammogram, [facility]. 03/09/2022 Bilateral Screening Mammogram, [facility]. Tissue Density: There are scattered fibroglandular densities. Findings: Analyzed By CAD. Postexcisional changes near the right axilla. Scattered benign vascular calcifications redemonstrated. There is no suspicious group of microcalcifications or new suspicious mass in either breast. Overall Assessment: Benign, BI-RAD 2 Management: Screening Mammogram of both breasts in 1 year. See note below regarding patient's increased five-year Liset score. Patient should continue monthly self-breast exams. A clinical breast exam by your physician is recommended on an annual basis. This exam should not preclude additional follow-up of suspicious palpable abnormalities. Note on Liset scores and lifetime risk: 1. A Liset score greater than 3% is considered moderate risk. If this is the case, consider specialist referral to assess eligibility for a risk reducing agent. 2. If overall lifetime risk for the development of breast cancer is 20% or higher, the patient may qualify for future screening with alternating mammogram and breast MRI. Electronically signed and approved by: Jordan Coon M.D. Radiologist
== END | disposition home or self-care (01) ==
LOC: RADMAMWWP 09:15
PROVIDERS: ATTEND Obstetrics & Gynecology
DX: Z12.31 Encounter for screening mammogram for malignant neoplasm of breast (principal); Z78.0 Asymptomatic menopausal state; Z80.3 Family history of malignant neoplasm of breast
CPT/HCPCS: 77063; 77067

== ENCOUNTER → 2025-05-14 | Outpatient (CLI) | payer MEDICARE, BC ==
--- NOTE | 2025-05-14 10:36 | MM ---
Reason for Exam: Screening (asymptomatic). Last mammogram was performed 2 year(s) and 2 month(s) ago. Patient History: Menarche at age 16. First Full-Term at age 25. Postmenopausal. 1979, Excisional Biopsy on the Right side. 1969, Benign Excisional Biopsy on the right side. Sister had breast cancer, age 50. Prior Study Comparison: 02/22/2021 Bilateral Screening Mammogram, [facility]. 03/09/2022 Bilateral Screening Mammogram, [facility]. 03/22/2023 Bilateral MG 3D screening mammo w/cad, [facility]. Tissue Density: There are scattered areas of fibroglandular density. Findings: Analyzed By CAD. There are tiny benign-appearing round and linear calcifications in the bilateral breasts redemonstrated. Benign-appearing vascular calcifications bilaterally is redemonstrated. There is no suspicious group of microcalcifications or new suspicious mass in either breast. Overall Assessment: Benign, BI-RAD 2 Management: Screening Mammogram of both breasts in 1 year. . Patient should continue monthly self-breast exams. A clinical breast exam by your physician is recommended on an annual basis. This exam should not preclude additional follow-up of suspicious palpable abnormalities. Note on Liset scores and lifetime risk: 1. A Liset score greater than 3% is considered moderate risk. If this is the case, consider specialist referral to assess eligibility for a risk reducing agent. 2. If overall lifetime risk for the development of breast cancer is 20% or higher, the patient may qualify for future screening with alternating mammogram and breast MRI. [facility], , 05/14/2025 10:00 AM. Electronically signed and approved by: Kishan Omalley M.D.
== END | disposition home or self-care (01) ==
LOC: RADMAMWWP 09:13
PROVIDERS: ATTEND Family Medicine
DX: Z12.31 Encounter for screening mammogram for malignant neoplasm of breast (principal); R92.323 Mammographic fibroglandular density, bilateral breasts; Z78.0 Asymptomatic menopausal state; Z80.3 Family history of malignant neoplasm of breast
CPT/HCPCS: 77063; 77067